=== PATIENT | male | born 1955 | race Caucasian/White ===

== ENCOUNTER 2020-06-16 12:01 | Emergency (ER) | payer OTHER ==
[~2020-06-16] VITALS: Ht 182.9 cm; Wt 113.4 kg
[2020-06-16] MEDS ORDERED: KEFLEX500 M1 PO (12:48)
[2020-06-16 13:16] VITALS: BP 143/78
== END 2020-06-16 13:17 | disposition home or self-care (01) ==
LOC: M.ERS 12:01
DX: S51.012A Laceration without foreign body of left elbow, initial encounter (principal); W26.8XXA Contact with other sharp object(s), not elsewhere classified, initial encounter; Y93.89 Activity, other specified; Y92.89 Other specified places as the place of occurrence of the external cause; Y99.8 Other external cause status